=== PATIENT | female | born 1975 | race Two or more races ===

== ENCOUNTER 2019-02-21 15:10 | Outpatient (CLI) | payer OTHER | END 2019-02-21 15:15 | disposition home or self-care (01) | LOC: LAB 15:10 | DX: J11.1 Influenza due to unidentified influenza virus with other respiratory manifestations (principal); J11.81 Influenza due to unidentified influenza virus with encephalopathy ==

== ENCOUNTER 2019-04-04 08:11 | Outpatient (CLI) | payer OTHER | END 2019-04-04 08:17 | disposition home or self-care (01) | LOC: LAB 08:11 | DX: E78.49 Other hyperlipidemia (principal); E55.9 Vitamin D deficiency, unspecified; Z00.00 Encounter for general adult medical examination without abnormal findings; R10.2 Pelvic and perineal pain; R42 Dizziness and giddiness ==

== ENCOUNTER 2019-04-29 11:29 | Emergency (ER) | payer OTHER ==
[~2019-04-29] VITALS: Ht 157.5 cm; Wt 46.7 kg
== END 2019-04-29 15:01 | disposition home or self-care (01) ==
LOC: ER 11:29
DX: K29.70 Gastritis, unspecified, without bleeding (principal)

== ENCOUNTER 2019-07-20 11:25 | Outpatient (CLI) | payer OTHER | END 2019-07-20 15:24 | disposition home or self-care (01) | LOC: MAMO-SONO 11:25 | DX: N64.4 Mastodynia (principal) ==

== ENCOUNTER 2019-08-27 13:35 | Outpatient (CLI) | payer OTHER | END 2019-08-27 13:45 | disposition home or self-care (01) | LOC: SONOGRAMA 13:35 | DX: R10.2 Pelvic and perineal pain (principal) ==

== ENCOUNTER 2020-01-30 14:20 | Outpatient (CLI) | payer OTHER | END 2020-01-30 14:26 | disposition home or self-care (01) | LOC: CERTIFICAD 14:20 | PROVIDERS: ATTEND Family Medicine | DX: Z11.1 Encounter for screening for respiratory tuberculosis (principal) ==

== ENCOUNTER 2020-02-28 15:19 | Outpatient (CLI) | payer OTHER | END 2020-02-28 15:23 | disposition home or self-care (01) | LOC: LAB 15:19 | PROVIDERS: ATTEND General Practice | DX: N39.0 Urinary tract infection, site not specified (principal) ==

== ENCOUNTER → 2020-03-13 10:00 | Outpatient (CLI) | payer OTHER | END | disposition home or self-care (01) | LOC: PPH VACUNA 10:00 | DX: Z23 Encounter for immunization (principal) ==

== ENCOUNTER 2020-04-03 08:45 | Outpatient (CLI) | payer OTHER | END 2020-04-03 08:50 | disposition home or self-care (01) | LOC: SONOGRAMA 08:45 | PROVIDERS: ATTEND Internal Medicine Gastroenterology | DX: Z12.11 Encounter for screening for malignant neoplasm of colon (principal); R10.13 Epigastric pain ==

== ENCOUNTER → 2020-04-25 11:00 | Outpatient (CLI) | payer OTHER | END | disposition home or self-care (01) | LOC: LAB 04-24 13:56 | PROVIDERS: ATTEND Internal Medicine Gastroenterology | DX: K30 Functional dyspepsia (principal); Z12.11 Encounter for screening for malignant neoplasm of colon ==

== ENCOUNTER 2020-07-14 07:09 | Outpatient (CLI) | payer OTHER | END 2020-07-14 07:15 | disposition home or self-care (01) | LOC: LAB 07:09 | PROVIDERS: ATTEND Surgery Plastic and Reconstructive Surgery | DX: D64.89 Other specified anemias (principal); D68.8 Other specified coagulation defects; I10 Essential (primary) hypertension ==

== ENCOUNTER 2020-08-26 07:37 | Outpatient (CLI) | payer OTHER | END 2020-08-26 07:54 | disposition home or self-care (01) | LOC: MAMO-SONO 07:37 | PROVIDERS: ATTEND Obstetrics & Gynecology | DX: N85.2 Hypertrophy of uterus (principal); N84.0 Polyp of corpus uteri; Z12.31 Encounter for screening mammogram for malignant neoplasm of breast; N60.11 Diffuse cystic mastopathy of right breast; N60.12 Diffuse cystic mastopathy of left breast ==

== ENCOUNTER → 2020-09-12 | Outpatient (CLI) | payer OTHER | END | disposition home or self-care (01) | LOC: SONOGRAMA 12:08 | PROVIDERS: ATTEND Surgery | DX: N62 Hypertrophy of breast (principal); N60.12 Diffuse cystic mastopathy of left breast; N60.11 Diffuse cystic mastopathy of right breast; R92.0 Mammographic microcalcification found on diagnostic imaging of breast; N60.01 Solitary cyst of right breast ==

== ENCOUNTER 2021-02-15 14:24 | Emergency (ER) | payer OTHER ==
[~2021-02-15] VITALS: Ht 157.5 cm; Wt 63.5 kg
== END 2021-02-15 21:11 | disposition home or self-care (01) ==
LOC: ER 14:24
DX: B34.9 Viral infection, unspecified (principal); N39.0 Urinary tract infection, site not specified; K29.70 Gastritis, unspecified, without bleeding; Z03.818 Encounter for observation for suspected exposure to other biological agents ruled out

== ENCOUNTER 2021-03-16 08:00 | Outpatient (CLI) | payer OTHER | END 2021-03-16 08:30 | disposition home or self-care (01) | LOC: PPH VACUNA 08:00 | PROVIDERS: ATTEND Emergency Medicine Pediatric Emergency Medicine | DX: Z23 Encounter for immunization (principal) ==

== ENCOUNTER 2021-05-08 08:00 | Outpatient (CLI) | payer OTHER | END 2021-05-08 08:30 | disposition home or self-care (01) | LOC: PPH VACUNA 08:00 | PROVIDERS: ATTEND Emergency Medicine Pediatric Emergency Medicine | DX: Z23 Encounter for immunization (principal) ==

== ENCOUNTER → 2021-06-02 13:44 | Outpatient (CLI) | payer OTHER | END | disposition home or self-care (01) | LOC: LAB 13:44 | PROVIDERS: ATTEND General Practice | DX: Z11.3 Encounter for screening for infections with a predominantly sexual mode of transmission (principal) ==

== ENCOUNTER 2021-08-19 13:44 | Outpatient (CLI) | payer OTHER | END 2021-08-19 13:47 | disposition home or self-care (01) | LOC: LAB 13:44 | PROVIDERS: ATTEND Radiology Diagnostic Radiology | DX: N85.2 Hypertrophy of uterus (principal) ==

== ENCOUNTER 2021-08-21 08:47 | Outpatient (CLI) | payer OTHER | END 2021-08-21 11:46 | disposition home or self-care (01) | LOC: MRI 08:47 | PROVIDERS: ATTEND General Practice | DX: N85.2 Hypertrophy of uterus (principal) | CPT/HCPCS: 72197 ==

== ENCOUNTER 2021-10-26 09:20 | Outpatient (CLI) | payer OTHER | END 2021-10-26 16:40 | disposition home or self-care (01) | LOC: MAMO-SONO 09:20 | PROVIDERS: ATTEND General Practice | DX: N64.4 Mastodynia (principal) ==

== ENCOUNTER 2021-11-20 12:23 | Emergency (ER) | payer OTHER ==
[~2021-11-20] VITALS: Ht 157.5 cm; Wt 61.2 kg
== END 2021-11-20 14:40 | disposition home or self-care (01) ==
LOC: ER 12:23
DX: J06.9 Acute upper respiratory infection, unspecified (principal); Z20.822 Contact with and (suspected) exposure to COVID-19; Z72.0 Tobacco use

== ENCOUNTER → 2021-11-30 09:21 | Outpatient (CLI) | payer OTHER | END | disposition home or self-care (01) | LOC: LAB 09:21 | PROVIDERS: ATTEND Radiology Nuclear Radiology | DX: D25.1 Intramural leiomyoma of uterus (principal); Z01.818 Encounter for other preprocedural examination ==

== ENCOUNTER 2021-12-05 12:07 | Emergency (ER) | payer OTHER ==
[~2021-12-05] VITALS: Ht 160 cm; Wt 63.5 kg
== END 2021-12-05 17:15 | disposition home or self-care (01) ==
LOC: ER 12:07
DX: B34.9 Viral infection, unspecified (principal); J04.0 Acute laryngitis; Z20.822 Contact with and (suspected) exposure to COVID-19

== ENCOUNTER 2022-02-12 08:36 | Emergency (ER) | payer OTHER ==
[~2022-02-12] VITALS: Ht 157.5 cm; Wt 59.0 kg
[2022-02-12] MEDS ORDERED: DICY20TA PO (10:46)
[2022-02-12] MEDS ORDERED: PEPCID AC20 MG PO (10:46)
== END 2022-02-12 10:56 | disposition home or self-care (01) ==
LOC: ER 08:36
DX: R10.84 Generalized abdominal pain (principal); Z20.822 Contact with and (suspected) exposure to COVID-19

== ENCOUNTER 2022-02-27 16:24 | Emergency (ER) | payer OTHER ==
[~2022-02-27] VITALS: Ht 157.5 cm; Wt 58.5 kg
[~2022-02-27 16:24] MED LIST: DICY20TA PO; PEPCID AC20 MG PO
== END 2022-02-28 00:10 | disposition home or self-care (01) ==
LOC: ER 16:24
DX: R10.2 Pelvic and perineal pain (principal); D25.9 Leiomyoma of uterus, unspecified